=== PATIENT | male | born 1980 | race Caucasian/White ===

== ENCOUNTER 2017-05-17 10:39 | Inpatient (IN) ==
--- NOTE | 2017-05-17 11:16 | Emergency Department Note ---
Disposition Clinical Impression: RLQ abdominal pain, Intractable abdominal pain Disposition: Admitted As Inpatient Condition: Good Time of Disposition: 15:09 Abdominal Pain HPI - General Chief Complaint: ED Abdominal Pain Stated Complaint: abd pain Time Seen by Provider: 05/17/17 11:00 Source: patient Mode of arrival: ambulatory Limitations: no limitations Nursing Notes Reviewed: Yes Vital Signs Reviewed: Yes - History of Present Illness HPI Narrative: Patient is a 36-year-old male with no past medical history. He presents today due to right lower quadrant pain. The pain was present this morning after waking up, it is sharp in nature, radiates to groin. He has significant pain in RLQ with palpation of the RLQ area. Reports nausea, but no vomiting, fevers , diarrhea, blood in stool, no URI symptoms, dysuria, hematuria. He has never had a history of kidney stones in the past. He still has his appendix. He states that he tried to go to work this morning but continued to have significant pain in the right lower quadrant and was sent here from work. He is unable to stand up straight fully due to pain in the right lower quadrant, he also states that on the car ride over that every bump that he hit in the car caused significant pain in that area. Pain Scale: 8 - Related Data Home Medications Medication Instructions Recorded Confirmed No Known Home Drugs 05/17/17 05/17/17 Allergies Allergy/AdvReac Type Severity Reaction Status Date / Time No Known Allergies Allergy Verified 05/17/17 14:13 All systems ED: reviewed and negative except as stated. Constitutional: Denies: fever ENT ED: Denies: ear pain, congestion, dysphagia Cardiovascular: Denies: chest pain, palpitations Respiratory: Denies: cough, dyspnea, wheezes Gastrointestinal: Reports: abdominal pain, nausea. Denies: vomiting, diarrhea, constipation Genitourinary: Denies: urgency, dysuria, frequency Musculoskeletal: Denies: back pain Neurological: Denies: weakness, numbness, paresthesias Abdominal Pain PMH - Past Medical History Medical history: Reports: no medical history Male Surgical History: Reports: no surgical history Psychiatric history: Reports: no psych history - Social History Smoking status: Never smoker Alcohol use: Reports: rarely Drug use: Reports: none Physical Exam Uncomfortable on exam, fidgeting in bed, can't seem to get comfortable - General Limitations: no limitations General appearance: alert, anxious - Head Head exam: atraumatic, normocephalic, normal inspection - Eye Eye exam: Present: normal appearance, PERRL, EOMI - ENT ENT exam: normal exam, normal oropharynx, mucous membranes moist - Neck Neck exam: Present: normal inspection, full ROM, trachea midline - Chest Chest inspection: Present: normal inspection, symmetric chest wall rise - Respiratory Respiratory exam: Present: normal lung sounds bilaterally - Cardiovascular Cardiovascular exam: Present: normal rhythm, tachycardia, normal heart sounds - Abdominal Exam Abdominal exam: Present: soft, tenderness (moderate RLQ), guarding (voluntary of RLQ). Absent: distention, rebound, rigidity - Extremities Exam Extremities exam: Present: normal inspection, full ROM. Absent: tenderness, pedal edema - Neurological Exam Neurological exam: Present: alert, oriented X3 - Psychiatric Psychiatric exam: Present: normal affect, normal mood - Skin Skin exam: Present: warm, dry, intact, normal color. Absent: rash Course Course Narrative: Patient only hypertensive on presentation, also tachycardic in the low 100s. This is likely secondary to pain. Physical exam shows an uncomfortable patient is constantly moving on the bed trying to get comfortable. Heart sounds normal , regular rhythm. Lungs clear to auscultation. Abdominal exam shows moderate tenderness in the right lower quadrant with some voluntary guarding. No CVA tenderness bilaterally. Due to history and physical exam, current concern for appendicitis versus kidney stone. We will give patient Dilaudid for pain control, obtain basic labs, urinalysis, CT of the abdomen and pelvis with IV contrast. 13:32 WBC 17.9. THe rest of the patients labs WNL. Negative UA. CT scan of the abdomen and pelvis was negative for any signs of appendicitis or kidney stone. However, patient continues to have pain despite 2 doses of Dilaudid. He still has right lower quadrant pain. With elevated white blood cell count, continue regular quadrant pain, I do feel that the patient needs admission for serial abdominal exams, possible surgical consult if worsening. Abdomen/Pelvis CT 05/17/17 11:22 IMPRESSION: Negative. Specifically, no obstructive uropathy or evidence of appendicitis D/ / Louis Taylor MD / Louis Taylor MD Interpreting Provider: Louis Taylor MD Vital Signs Temperature 99.1 F 05/17/17 10:44 Pulse Rate 100 05/17/17 10:44 Respiratory Rate 18 05/17/17 10:44 Blood Pressure 136/86 05/17/17 10:44 O2 Sat by Pulse Oximetry 98 05/17/17 10:44 Temperature 99.1 F 05/17/17 10:44 Pulse Rate 75 05/17/17 14:17 Respiratory Rate 18 05/17/17 14:17 Blood Pressure 137/83 05/17/17 14:17 O2 Sat by Pulse Oximetry 98 05/17/17 14:17 Oxygen Delivery Oxygen Delivery Room Air Abdominal Pain - MDM Narrative Medical decision making narrative: WBC 17.9. THe rest of the patients labs WNL. Negative UA. CT scan of the abdomen and pelvis was negative for any signs of appendicitis or kidney stone. However, patient continues to have pain despite 2 doses of Dilaudid. He still has right lower quadrant pain. With elevated white blood cell count, continue regular quadrant pain, I do feel that the patient needs admission for serial abdominal exams, possible surgical consult if worsening. - Medical Records Medical records reviewed: Yes I reviewed the patient's medical records. - Lab Data Lab results reviewed: Yes I reviewed the patient's lab results. Result diagrams: 05/17/17 11:27 05/17/17 11:27 Lab Results 05/17/17 05/17/17 05/17/17 Range/Units 11:08 11:27 11:27 WBC 17.9 H (4.3-11.1) K/mcL RBC 4.97 (4.19-5.50) M/mcL Hgb 14.0 (12.9-16.9) g/dL Hct 41.4 (37.5-50.1) % MCV 83.3 (83.0-100.0) fL MCH 28.2 (28.0-33.3) pg MCHC 33.8 (31.6-35.5) g/dL RDW 12.8 (11.5-14.5) % Plt Count 291 (140-400) K/mcL MPV 10.3 (9.4-12.4) fL Immature Gran % 0.3 (0-4) % Seg Neutrophils % 83.9 % Lymphocytes % 9.7 % Monocytes % 5.2 % Eosinophils % 0.7 % Basophils % 0.2 % Neutrophils # 15.0 H (1.6-8.9) K/mcL Lymphocytes # 1.7 (0.6-4.6) K/mcL Monocytes # 0.9 (0.0-1.3) K/mcL Eosinophils # 0.1 (0.0-0.6) K/mcL Basophils # 0.0 (0.0-0.2) K/mcL Sodium 139 (136-145) mEq/L Potassium 4.1 (3.5-4.5) mEq/L Chloride 105 (98-109) mEq/L Carbon Dioxide 26 (19-29) mEq/L BUN 12 (8-26) mg/dL Creatinine 0.88 (0.72-1.25) mg/dL Est GFR ( Amer) > 60 (> 60) Est GFR (Non-Af Amer) > 60 (> 60) BUN/Creatinine Ratio 14 (6-26) Glucose 102 H (70-99) mg/dL Calculated Osmolality 288 (280-300) Calcium 9.8 (8.6-10.8) mg/dL Total Bilirubin 0.7 (0.2-1.2) mg/dL Direct Bilirubin 0.3 (0.0-0.5) mg/dL Indirect Bilirubin 0.4 (0.0-1.2) mg/dL AST 23 (5-34) Units/L ALT 55 (0-55) Units/L Alkaline Phosphatase 53 (38-126) Units/L Serum Total Protein 7.5 (6.0-8.3) g/dL Albumin 4.4 (3.5-5.0) g/dL Globulin 3.1 (2.4-3.5) g/dL Albumin/Globulin Ratio 1.4 (1.1-2.2) Lipase 11 (8-78) Units/L Urine Color Yellow (Yellow) Urine Clarity Clear (Clear) Urine pH 7.5 (5.0-8.0) pH Units Ur Specific Porter 1.024 (1.010-1.025) Urine Protein Negative (Neg-Trace) mg/dL Urine Glucose (UA) Normal (Normal) mg/dL Urine Ketones Negative (Negative) mg/dL Urine Blood Negative (Negative) Urine Nitrite Negative (Negative) Urine Bilirubin Negative (Negative) Urine Urobilinogen Normal (Normal) mg/dL Ur Leukocyte Esterase Negative (Negative) - Radiology Data Radiology results reviewed: Yes I reviewed the patient's radiology results. Abdomen/Pelvis CT 05/17/17 11:22 IMPRESSION: Negative. Specifically, no obstructive uropathy or evidence of appendicitis D/ / Louis Taylor MD / Louis Taylor MD Interpreting Provider: Louis Taylor MD yra - Chiquita Situation: Demographics, MOA Background: Presenting Complaint, Relevant PMH, Meds, & Allergies Assessment: Vital Signs, Course and respsone to treatment, Exam Concerns, Patient/Family Expectation, Pertinant Lab Results, Outstanding Labs Recommendation: Barrier(s) to disposition, Recommendation based on pending studies, treatments, or consults Chiquita Report Given to: Dr. Samara Porras Repor Time: 15:09 Attestation Statement - Attestation Attestation: I examined this patient and my medical decision-making was reviewed with the Resident Physician, Dr. Riddle. I agree with the documented findings, disposition and treatment plan as described except to the extent set forth below. Patient is an otherwise healthy 36-year-old white male who presents to the emergency today with gradually worsening right lower quadrant abdominal pain since last night. Patient with some associated nausea but no vomiting or bowel changes. Patient appears uncomfortable and is actually writhing at bedside on arrival due to the discomfort in his pain. Patient denies any history of kidney stones, no urinary symptoms and no flank pain. Physical exam findings as documented. Patient received IV pain medication and laboratory values urinalysis was sent. On clinical exam he had significant tenderness to palpation in the right lower quadrant with some guarding. We were concerned about the possibility of appendicitis due to his abdominal exam and he was sent for CAT scan imaging with contrast. Patient has remained hemodynamically stable throughout his ED course. IV pain medicines patient is still quite uncomfortable in the ED. His abdominal exam remains stable over time. His CT scan did not show any evidence of appendicitis, appendix was clearly visualized with no changes. He also did not have any other abnormalities seen. Patient's white count is significantly elevated at 18 with a left shift and the remainder of his labs are unremarkable. Due to patient's ongoing pain, perineal signs on exam we will admit the patient for serial abdominal exams and possible surgical consult. Case was discussed with the hospitalist who accepted the patient for admission.
[2017-05-17 11:21] LABS: Bilirubin,Urine Negative (Negative); Blood,Urine Negative (Negative); Clarity,Urine Clear (Clear); Color,Urine Yellow (Yellow); Glucose,Urine (UA) Normal (Normal); Ketones,Urine Negative (Negative); Leukocyte Esterase,Urine Negative (Negative); Nitrite,Urine Negative (Negative); PH,Urine 7.5 pH Units (5.0-8.0); Protein,Urine Negative (Neg-Trace); Specific Gravity,Urine 1.024 (1.010-1.025); Urobilinogen,Urine Normal (Normal)
[2017-05-17] MEDS ORDERED: *HR* HYDROmorphone (PF) 1 MG/ML SYRINGE IVP ONE ×3 (11:22→15:03)
[2017-05-17 11:34] LABS: Basophils % 0.2 %; Eosinophils # 0.1 K/mcL (0.0-0.6); Eosinophils % 0.7 %; Hematocrit 41.4 % (37.5-50.1); Immature Granulocytes % 0.3 % (0-4); Lymphocytes # 1.7 K/mcL (0.6-4.6); Lymphocytes % 9.7 %; Mean Corpuscular HGB Conc 33.8 g/dL (31.6-35.5); Mean Corpuscular Hemoglobin 28.2 pg (28.0-33.3); Mean Corpuscular Volume 83.3 fL (83.0-100.0); Mean Platelet Volume 10.3 fL (9.4-12.4); Monocytes # 0.9 K/mcL (0.0-1.3); Monocytes % 5.2 %; Platelet Count 291 K/mcL (140-400); Red Blood Count 4.97 M/mcL (4.19-5.50); Red Cell Distribution Width 12.8 % (11.5-14.5); Segmented Neutrophils % 83.9 %
[2017-05-17 11:50] LABS: Alanine Aminotransferase 55 Units/L (0-55); Albumin 4.4 g/dL (3.5-5.0); Albumin/Globulin Ratio 1.4 (1.1-2.2); Alkaline Phosphatase 53 Units/L (38-126); Aspartate Amino Transferase 23 Units/L (5-34); BUN/Creatinine Ratio 14 (6-26); Bilirubin,Direct 0.3 mg/dL (0.0-0.5); Bilirubin,Indirect 0.4 mg/dL (0.0-1.2); Bilirubin,Total 0.7 mg/dL (0.2-1.2); Blood Urea Nitrogen 12 mg/dL (8-26); Calcium 9.8 mg/dL (8.6-10.8); Carbon Dioxide 26 mEq/L (19-29); Chloride 105 mEq/L (98-109); Globulin 3.1 g/dL (2.4-3.5); Glucose 102 mg/dL (70-99); Lipase 11 Units/L (8-78); Osmolality,Calculated 288 (280-300); Potassium 4.1 mEq/L (3.5-4.5); Sodium 139 mEq/L (136-145); Total Protein 7.5 g/dL (6.0-8.3); eGFR For African Americans > 60 (> 60); eGFR For Non-African Americans > 60 (> 60)
[2017-05-17] MEDS ORDERED: Ketorolac 30 MG/ML VIAL IVP ONE (17:42)
--- NOTE | 2017-05-17 21:03 | Internal Med History&Physical ---
<Mary Henderson - Last Filed: 05/17/17 23:15> Date of Encounter: 05/17/17 Time of Encounter: 20:46 Assessment and Plan (1) RLQ abdominal pain Current visit: Yes Status: Acute Patient has significant right lower quadrant tenderness since 5:30 AM. Positive McBurney point, Psoas sign, obturator sign. Negative Rovsing sign in [place]. Patient admits minimal nausea. Denies fever, chills, dysuria, hematachezia, difficulty urinating, diarrhea. Physical exam and history very concerning for appendicitis despite negative abdominal CT findings for appendicitis. WBC 17.9 Afebrile, vital stable Abd CT- negative for appendicitis Flagyl IV surgery consulted- Dr. Gonsalez IV morphine IV fluids Zofran NPO (2) Leukocytosis Current visit: Yes Status: Acute WBC 17.9 Infectious source is concerning for appendicitis despite normal Abdominal CT scan. Urinalysis normal IV flagyl (3) DVT prophylaxis Current visit: Yes Status: Acute SCDP Internal Medicine - H&P: HPI Chief complaint: right lower quadrant pain Admitted From: Emergency Dept Plans for Post Hospital Care: Home History of present illness: Mr. Cardona is a 36 year old male with no past medical history who presented to the hospital complaining of right lower quadrant pain that began at 5:30am when he woke up. He stated that he went to work because he thought the pain might go away. At work he was unable to bend over and was favoring his right side. A co- worker that is an EMT recommended that he go to the ED. At 10am his father drove him to the ED and the bumps in the road made it more painful. He has never had anything like this before. He still has his appendix. He stated that the Dilaudid given in ED helped some but only for a short time. Standing and moving makes the pain worse. He describes the pain as sharp without radiation elsewhere. He admitted to mild nausea. He denies fever, chills, vomiting, diarrhea, hematachezia, melena, dysuria, chest pain, shortness of breath, difficulty urinating. He denies previous abdominal surgeries, hernias, kidney stone, falls, trauma. He is a full code. Abdominal CT showed no appendicitis. Elevated WBC 17.9 Afebrile, hemodynamically stable. Past Med Surg Social Fam HX - Past Medical History Medical history: no medical history Psychiatric history: no psych history - Past Surgical History Surgical History: other (tonsillectomy and wisdom teeth) - Social History Smoking Status: Never smoker Smokeless Tobacco Status: No Alcohol use: rarely Drug use: none Occupational status: employed Current living situation: Home Activity Level: Independent ambulation - Family History Mother Living Status: Still Living Hx Family Cardiac Disorders: No Hx Family Cancer: No Internal Medicine - H&P: Meds No Known Home Drugs 05/17/17 [History] 3 Allergy/AdvReac Type Severity Reaction Status Date / Time No Known Allergies Allergy Verified 05/17/17 14:13 All Systems PM: A 10-system review of systems was performed and is negative for pertinent findings except as documented above in the HPI. - Constitutional Constitutional: no chills, no fever(s), no falls - EENT Eyes: no change in vision - Cardiovascular Cardiovascular ROS IM: no chest pain, no edema, no palpitations, no syncope - Respiratory Respiratory: no cough, no dyspnea, no wheezing - Gastrointestinal Gastrointestinal: abdominal pain (right lower quadrant), nausea, no change in bowel habits, no constipation, no diarrhea, no hematemesis, no hematochezia, no melena, no vomiting - Genitourinary Genitourinary ROS male: no difficulty urinating, no dysuria, no hematuria, no penile discharge, no testicular pain, no urinary frequency - Integumentary Integumentary IM: no rash, no skin ulcer - Neurological Neurological ROS: no dizziness, no frequent falls, no headache(s) - Psychiatric Psychiatric: no confusion - Constitutional Vitals: Temp Pulse Resp BP Pulse Ox 97.6 F 69 18 126/74 100 05/17/17 18:55 05/17/17 18:55 05/17/17 18:55 05/17/17 18:55 05/17/17 18:55 General appearance: Present: mild distress, A&O X 3, pleasant - Head Head exam: Present: atraumatic, normocephalic - Eye Eye exam: Present: conjunctival injection, normal appearance - ENT ENT exam: Present: mucous membranes moist - Neck Neck exam general surgery: Present: supple. Absent: tenderness - Respiratory Respiratory exam: Present: CTAB. Absent: rales, rhonchi, wheezes - Cardiovascular Cardiovascular exam: Present: RRR, +S1, +S2. Absent: clicks - GI/Abdominal GI/Abdominal exam: Present: guarding (minimal), hypoactive bowel sounds, rebound , soft, tenderness (right lower quadrant), no peritoneal signs. Absent: distended, firm, hernia - Expanded GI/Abdominal Exam GI/Abdominal exam expanded: Present: obturator sign, psoas sign, tenderness at McBurney's Point. Absent: Ashton's sign, Rovsing's sign - exam: Absent: testicular tenderness - Extremities Exam Extremities exam: Absent: tenderness - Back Exam Back exam: Present: normal inspection. Absent: CVA tenderness (L), CVA tenderness (R), rash noted - Skin Skin exam: Present: dry, intact. Absent: rash Internal Med - H&P Results - Labs CBC & Chem 7: 05/17/17 11:27 05/17/17 11:27 <Farnaz Fulton - Last Filed: 05/18/17 02:53> Date of Encounter: 05/17/17 Internal Medicine - H&P: HPI History of present illness: Mr. Cardona is a 36 year old male All Systems PM: A 10-system review of systems was performed and is negative for pertinent findings except as documented above in the HPI. - Constitutional Vitals: Temp Pulse Resp BP Pulse Ox 98.0 F 66 16 142/87 99 05/18/17 02:41 05/18/17 02:41 05/18/17 02:41 05/18/17 02:41 05/18/17 02:41 Internal Med - H&P Results - Labs CBC & Chem 7: 05/17/17 11:27 05/17/17 11:27 - Attending Attestation Postop patient went in for a failure. Patient is awake and alert and consented to intubation. Resident was observed and supervised for procedure and procedure was completed without any complications.
[2017-05-17] MEDS ORDERED: Ondansetron ODT 4 MG TAB.RAPDIS SL PRN (22:01)
[2017-05-17] MEDS ORDERED: *HR* Morphine 2 MG/ML SYRINGE IVP PRN (22:01)
[2017-05-17] MEDS ORDERED: Naloxone 0.4 MG/ML INJ IVP PRN (22:01)
[2017-05-17] MEDS ORDERED: 0.9 % Sodium Chloride 1,000 ML IVC SCH (22:15)
[2017-05-18] MEDS ORDERED: MetroNIDAZOLE 500 MG/100 ML 500 MG/100 ML BAG IVPB SCH
--- NOTE | 2017-05-18 00:06 | General Surgery Consult Note ---
Date of Encounter: 05/18/17 Time of Encounter: 23:30 History of Present Illness Consult date: 05/17/17 Reason for consult: abdominal pain (Right lower quadrant; suspected acute appendicitis) Requesting physician: Mary Henderson History of present illness: 36-year-old male referred to surgery late this evening for further evaluation and treatment of acute onset right lower quadrant abdominal pain. Patient indicates symptoms started approximately 0500 hrs. He had severe abdominal pain on awakening from sleep but no nausea and vomiting. He attempted to go to work but was unable to do so due to the abdominal pain. There was no associated fevers chills or diarrhea. He presented to [facility] ED earlier today for further evaluation and treatment. Findings included a leukocytosis of 17.9 with 15% neutrophils accompanying the acute right lower quadrant abdominal pain. The patient described feeling every bump in the road en route to the hospital and was buggy ladle tender in the right lower quadrant on presentation to the ED. CT of the abdomen and pelvis without contrast demonstrated no intra-abdominal or pelvic findings. The appendix was described as normal. Due to the findings the patient was admitted for further observation and has had progressive pain since that admission. This ultimately prompted surgical consultation late this evening. Past medical history: Negative Surgical history: Tonsillectomy Medications: None Allergies: No known drug allergies Social history: Patient is , lives with his spouse and 4 children; he is employed. He admits to a history of tobacco abuse in the past he currently "vapes". He admits to an occasional alcoholic beverage; he does not admit to any illicit drug use. Physical examination: Age-appropriate male resting comfortably in his hospital bed indicating persistent right lower quadrant abdominal pain. He is 1.91 m tall 113.4 kg, BMI 31.2. He has been afebrile at 97.6, pulse 74 , respirations 16, blood pressure 145/88. SPO2 on room air 100% Skin is warm without obvious jaundice Lungs: Clear to auscultation, no abdominal pain with deep inspiration Cardiac: Regular rate, no appreciable murmurs Abdomen: Soft, with tenderness in the right lower quadrant. I did not elicit any rebound or tenderness radiating to the right lower quadrant with palpation of the left lower quadrant (Rovsing sign). Patient did demonstrate a psoas sign. Bowel sounds were active. There were no discernible intra-abdominal masses. Extremities: No obvious clubbing cyanosis or edema. Impression: 36-year-old male with abrupt onset right lower quadrant abdominal pain early this morning. It has progressed in severity but is not associated with any fevers, chills, nausea or vomiting. It is possible for a CT scan obtained within 24 hours of onset of symptoms to be negative for acute appendicitis. The findings are highly suspicious for acute appendicitis. Treatment options include continued expectant follow-up with serial abdominal exams versus surgical intervention. The risks of surgery include hemorrhage, infection, intra-abdominal abscess, injury to adjacent structures and the potential for removal of a normal appendix. The patient describes pain as severe enough for him to request surgery. Surgical consent has been obtained. The patient is a reasonable candidate for laparoscopic appendectomy but understands that an open appendectomy may become necessary. The surgical team has been notified and we will proceed as soon as possible. Past Med Surg Social Fam HX - Past Medical History Medical history: no medical history Psychiatric history: no psych history - Past Surgical History Surgical History: other (tonsillectomy and wisdom teeth) - Social History Smoking Status: Never smoker Smokeless Tobacco Status: No Alcohol use: rarely Drug use: none - Family History Mother Living Status: Still Living Hx Family Cardiac Disorders: No Hx Family Cancer: No Medications and Allergies No Known Home Drugs 05/17/17 [History] 3 Allergy/AdvReac Type Severity Reaction Status Date / Time No Known Allergies Allergy Verified 05/17/17 14:13 Review of Systems All systems PM: A 10-system review of systems was performed and is negative for pertinent findings except as documented above in the HPI. General Surgery Exam Initial Vital Signs Temp Pulse Resp BP Pulse Ox 99.1 F 100 18 136/86 98 05/17/17 10:44 05/17/17 10:44 05/17/17 10:44 05/17/17 10:44 05/17/17 10:44 Exam Initial Vital Signs Temp Pulse Resp BP Pulse Ox 99.1 F 100 18 136/86 98 05/17/17 10:44 05/17/17 10:44 05/17/17 10:44 05/17/17 10:44 05/17/17 10:44 Results - Labs 05/17/17 11:27 05/17/17 11:27 Abnormal lab results WBC 17.9 K/mcL (4.3-11.1) H 05/17/17 11:27 Neutrophils # 15.0 K/mcL (1.6-8.9) H 05/17/17 11:27 Glucose 102 mg/dL (70-99) H 05/17/17 11:27 All other labs normal. Consult Discharge Plan - Plan Referrals: Kb Swain MD [Primary Care Provider] -
[2017-05-18] MEDS ORDERED: *HR* HYDROmorphone (PF) 1 MG/ML SYRINGE IVP PRN ×2 (00:08→03:36)
[2017-05-18] MEDS ORDERED: *HR* Promethazine 25 MG/ML VIAL IVP PRN (00:08)
--- NOTE | 2017-05-18 00:08 | Anesthesia Evaluation PreOp ---
Date of Encounter: 05/18/17 Time of Encounter: 00:50 - Past History Planned Operation: Laparoscopic Appendectomy Cardiac History: Denies any Significant Hx Pulmonary History: Denies Any Significant HX DIAZO TECHNICIAN History: Denies Any Significant HX Other Medical History: Denies Any Significant HX Anesthesia History: Past Anesthesia (no prior surgery) Alcohol Use: occasionally Drug use: none Medications and Allergies No Known Home Drugs 05/17/17 [History] 3 Allergy/AdvReac Type Severity Reaction Status Date / Time No Known Allergies Allergy Verified 05/17/17 14:13 - Meds/Allergy Pre-op Review Medications Reviewed: Yes Allergies Reviewed: Yes Beta Blockers on Current Med List: No Anesthesia Results - Labs 05/17/17 11:27 05/17/17 11:27 Anesthesia Exam Vital Signs/O2 Sat, Most Current Temp Pulse Resp BP Pulse Ox 97.6 F 74 16 145/88 100 05/17/17 18:55 05/17/17 23:27 05/17/17 23:27 05/17/17 23:27 05/17/17 23:27 Height: 6'3''/1.91 m Weight: 250 lbs/113.4 kg NPO (# of Hours): 8 Pain Scale: 8 (abdomen) Pain Scale Used: Numeric (1 - 10) - HEENT Pupil (Motor): EOMI Mallampati: II Teeth: Normal Oral Opening: Greater than 3 - DIAZO TECHNICIAN LOC: Oriented DIAZO TECHNICIAN Motor: Normal RUE, Normal LUE, Normal RLE, Normal LLE, Normal Face DIAZO TECHNICIAN Sensory: Normal: RUE, LUE, RLE, LLE, Face - Cardiac Rhythm: Regular Murmur: None - Pulmonary Breath Sounds: bilateral Clear Respiratory Effort: Symmetrical Anesthesia Assess/Plan ASA Score: 2 Modified Tomas Scale for Level of Consciousness: Cooperative, oriented, and tranquil Anesthetic Plan: General Monitoring Plan: Standard Monitors Recovery Plan: PACU
[2017-05-18] MEDS ORDERED: *HR* Propofol 200 MG/20 ML VIAL IVP ONE (00:22)
[2017-05-18] MEDS ORDERED: *HR* Morphine 10 MG/ML VIAL ONE (00:22)
[2017-05-18] MEDS ORDERED: *HR* FentaNYL (PF) 100 MCG/2 ML VIAL ONE (00:22)
[2017-05-18] MEDS ORDERED: *HR* Midazolam HCl 2 MG/2 ML VIAL ONE (00:22)
[2017-05-18] MEDS ORDERED: *HR* Succinylcholine 200 MG/10 ML VIAL IVP ONE (00:23)
[2017-05-18] MEDS ORDERED: Dexamethasone 4 MG/ML VIAL ONE (00:23)
[2017-05-18] MEDS ORDERED: *HR* Rocuronium Bromide 50 MG/5 ML VIAL ONE (00:23)
[2017-05-18] MEDS ORDERED: Lidocaine -MPF 2% 2 ML VIAL ONE (00:23)
[2017-05-18] MEDS ORDERED: Ondansetron 4 MG/2 ML VIAL ONE (00:23)
[2017-05-18] MEDS ORDERED: CefOXitin 2,000 MG VIAL ONE (00:44)
[2017-05-18] MEDS ORDERED: Bupivacaine/EPI 1:200k 0.5%PF 10 ML VIAL ONE (00:47)
[2017-05-18] MEDS ORDERED: Lidocaine -MPF 4% 5 ML AMPUL ONE (00:53)
[2017-05-18] MEDS ORDERED: Lidocaine 1% 20 ML MDV ONE (00:55)
[2017-05-18] MEDS ORDERED: Ringers Solution, Lactated 1,000 ML IVC SCH (01:00)
[2017-05-18] MEDS ORDERED: Neostigmine Methylsulfate 3 MG/3 ML SYRINGE ONE (01:45)
--- NOTE | 2017-05-18 02:14 | Operative Note ---
Date of procedure: 05/18/17 Pre-op diagnosis: acute right lower quadrant abdominal pain, likely acute appendicitis Post-op diagnosis: same Procedure: laparoscopic appendectomy Complications: none apparent Anesthesia: GETA Local Anesthetics: 0.5% Sensorcaine HCL with Epinephrine 1:200,000 SubQ (cc) ( 30mL) Surgeon: Chucky Gonsalez Estimated blood loss (cc): 5 IV fluids (cc): 1,300 Condition: stable Disposition: PACU Procedure in Detail: Brief history: 36-year-old male admitted earlier, 05/17/17, after presenting to the emergency department with new onset right lower quadrant abdominal pain. He has included a leukocytosis of greater than 17,000 with neutrophilia, however , a CT scan was not consistent with acute appendicitis. The patient's abdominal pain progressed since admission prompting a surgical consultation be placed much later in the day. On my assessment it appeared likely that the patient had early acute appendicitis for which surgery was recommended. Alternative treatment included continued monitoring and serial abdominal exams. The patient described his pain as too great to delay surgery. Consent for laparoscopic appendectomy possible open appendectomy was obtained. Technique: The patient was brought to the operating room where he was placed supine upon the operating room table. The patient was appropriately identified as to person and procedure. The accuracy of this information was confirmed by the procedure team. The patient was then intubated and anesthetized under the supervision of Dr. Rommel Monroy. Initially lying on the operating room table the patient complained of increased abdominal pain, maintaining his hips and knees flexed until anesthesia was induced. The abdomen was prepped and draped in usual sterile fashion. Several milliliters of 0.5% bupivacaine with 1-200,000 epinephrine was infiltrated into the infraumbilical skin. A small transverse incision was made and stented to the fascia. The fascia was grasped and elevated. Additional bupivacaine with epinephrine was infiltrated into the fascia before it was incised. An 11 mm Xcel Port was established without difficulty. The rigid laparoscope was placed within the obturator to visualize passage through the layers of the anterior abdominal wall. Once the abdominal cavity was accessed, the obturator was replaced by the rigid laparoscope and the abdomen was insufflated with gaseous carbon dioxide. There was no obvious visible injury from established in the port. Under direct visualization a 5 mm port was placed in the suprapubic midline and a 12 mm port was placed in the left lower quadrant midclavicular line. Both sites were infiltrated with bupivacaine with epinephrine solution. Index was identified and appeared to be mildly inflamed and indurated consistent with early acute appendicitis. The mesoappendix was divided at the junction of the appendix with the cecum allowing the appendix to be transected at its junction with the cecum using a Ethicon ATS 45 mm stapler using a blue cartridge. The mesoappendix was then transected with a second application of the Ethicon ATS 45 linear stapler using a vascular (white) cartridge. The appendix was from the surrounding structures and placed in an endoscopic pouch and extracted through the infraumbilical opening. The appendix was retrieved and sent to pathology. The 2 staple lines appeared to be intact. A survey of the rest of the abdomen demonstrated no other obvious pathology. Pneumoperitoneum was evacuated, the instrumentation was removed. Fascia of the infraumbilical opening was closed with interrupted figure of eights 0 Vicryl using S retractors. The skin edges at sites were closed with running subcuticular 4-0 Vicryl. The incisions were sealed with Dermabond dermal adhesive. The patient was taken to recovery in stable condition. Needle, sponge, and instrument counts were correct at the close of the case. Total volume of 0.5% bupivacaine with 1-200,000 units epinephrine used during this procedure, 30 mL.
--- NOTE | 2017-05-18 02:30 | Anesthesia Evaluation Post Op ---
Date of Encounter: 05/18/17 Time of Encounter: 02:30 - Vital Signs Vital Signs: Vital Signs/O2 Sat, Most Current Temp Pulse Resp BP Pulse Ox 98.2 F 71 16 138/83 96 05/18/17 02:11 05/18/17 02:21 05/18/17 02:21 05/18/17 02:21 05/18/17 02:21 - Lungs Lungs: Clear Ascult./Percussion - Airway Airway: Non-obstructed - Cardiovascular Regular Rate - Mental Status Mental Status: Asleep with brisk response to light stimulation - Pain Pain Scale: 4 Pain Scale used: Numeric (1 - 10) - Nausea Vomiting Nausea Vomiting: Not Present - Hydration Hydration: Ice chips, Has not voided - Discharge PostOp Status: Transfer Patient to floor
[2017-05-18] MEDS ORDERED: Naloxone 0.4 MG/ML INJ IVP PRN (03:36)
[2017-05-18] MEDS ORDERED: *HR* OxyCODONE/APAP 5/325 TABLET PO PRN (03:36)
[2017-05-18] MEDS ORDERED: 0.9 % Sodium Chloride 1,000 ML IVC SCH (03:36)
[2017-05-18] MEDS ORDERED: Acetaminophen 325 MG TABLET PO PRN (03:36)
[2017-05-18] MEDS ORDERED: Ondansetron 4 MG/2 ML VIAL IVP PRN (03:36)
[2017-05-18] MEDS ORDERED: Ringers Solution, Lactated 500 ML IV SCH (03:45)
[2017-05-18 11:02] VITALS: BP 131/68
[2017-05-18 12:01] LABS: Basophils % 0.1 %; Hematocrit 37.9 % (37.5-50.1); Hemoglobin 12.5 g/dL (12.9-16.9); Immature Granulocytes % 0.4 % (0-4); Lymphocytes # 0.8 K/mcL (0.6-4.6); Lymphocytes % 8.1 %; Mean Corpuscular Hemoglobin 28.2 pg (28.0-33.3); Mean Corpuscular Volume 85.4 fL (83.0-100.0); Monocytes # 0.5 K/mcL (0.0-1.3); Monocytes % 5.5 %; Neutrophils # 8.5 K/mcL (1.6-8.9); Platelet Count 262 K/mcL (140-400); Red Blood Count 4.44 M/mcL (4.19-5.50); Red Cell Distribution Width 12.8 % (11.5-14.5); Segmented Neutrophils % 85.9 %
--- NOTE | 2017-05-18 14:20 | General Surgery Progress Note ---
Date of Encounter: 05/18/17 Time of Encounter: 14:00 Subjective Patient reports: feels better, pain is less, tolerating a regular diet Narrative: General Surgery - Post op check patient approx 13 hours s/p lap appendectomy. The appendix was minimally inflamed and indurated consistent with early acute appendicitis. No obvious perforation. The patient is feeling much improved, pain is significantly diminished. He now describes himself as "sore" The patient remains afebrile, most recently 97.8, pulse 67, respirations 14, blood pressure 131/68 Lungs: Clear to auscultation, no obvious abdominal pain on deep inspiration Abdomen: Soft with minimal periumbilical tenderness. Port sites are intact and appear to be healing well. Surrounding ecchymosis most likely related to infiltration of local anesthetic at the time of surgery. Bowel sounds are active. Patient tolerating regular diet with no nausea or vomiting. Postoperative blood work shows resolution of leukocytosis, 9.8; hemoglobin 12.5 hematocrit 37.9. Differential shows resolved neutrophilia Impression: Early acute appendicitis. Preoperative symptoms resolved. Pathology pending for confirmation of the clinical diagnosis Acceptable postoperative state. If medically stable, may be discharged home Instructions: Regular diet Patient may shower, wash incisions with soap and water Activity as tolerated; lifting limited to less than 20 pounds Follow up my office, 05/27/17. Patient to call office in a.m. to make this appointment Tylenol, ibuprofen, Motrin, Advil, etc. as needed for pain Suggest Prescription for Percocet 5/325, #6, 1 every 6 hours as needed for pain not relieved by [id number] medications: Objective Vital Signs - Last 8 Hours Temp Pulse Resp BP Pulse Ox 05/18/17 10:52 97.8 F 67 14 131/68 97 05/18/17 07:40 97.4 F L 79 16 111/79 96 Intake and Output 05/17/17 05/18/17 05/18/17 23:59 07:59 15:59 Intake Total 620 / 620 Output Total 360 / 360 0 / 0 Balance -360 / -360 620 / 620 Intake: Oral 620 / 620 Output: Urine 350 / 350 0 / 0 Estimated Blood Loss Other: Meal Lunch Percent of Meal Consumed 100% Weight 113.1 kg Patient Weight 05/18/17 23:59 Weight 113.1 kg - Labs 05/18/17 11:55 05/17/17 11:27 - VTE Documentation of Mechanical Device: Intermittent pneumatic compression device Consult Discharge Plan - Plan Referrals: Kb Swain MD [Primary Care Provider] -
--- NOTE | 2017-05-18 15:51 | Discharge Summary ---
Date of Encounter: 05/18/17 Time of Encounter: 15:49 - Discharge Diagnosis (1) Acute appendicitis Priority: Primary Status: Acute Qualifiers: Acute appendicitis type: unspecified acute appendicitis type Qualified Code (s): K35.80 - Unspecified acute appendicitis (2) Intractable abdominal pain Priority: Secondary Status: Acute (3) Leukocytosis Priority: Secondary Status: Acute Qualifiers: Leukocytosis type: unspecified Qualified Code(s): D72.829 - Elevated white blood cell count, unspecified - Discharge Medications Prescriptions: OxyCODONE/APAP 5/325 [Percocet 5/325 MG] 1 each PO Q8HR PRN #15 tablet PRN Reason: pain not relieved by Tylenol Home Medications: OxyCODONE/APAP 5/325 [Percocet 5/325 MG] 1 each PO Q8HR PRN #15 tablet 05/18/17 [Rx] Allergies/Adverse Reactions: 3 Allergy/AdvReac Type Severity Reaction Status Date / Time No Known Allergies Allergy Verified 05/17/17 14:13 Date of admission: 05/17/17 19:49 Primary care physician: Kb Swain MD Consults: 05/17/17 23:13 Consult to Surgery [CONS] Routine Consulting Provider: Surgery [facility] Reason for Consult: concern for appendicitis Call Completed: Yes Discharging clinician: Zeenat Perry - Patient Status Disposition: Home, Self-Care Condition: Good Functional capacity at discharge: independent ambulation Overall status at discharge: patient is progressing back to baseline - Discharge Instructions Instructions: Laparoscopic Appendectomy (DC) Follow Up With: Kb Swain MD [Primary Care Provider] - Additional Instructions: 1.) No lifting/pulling greater than 20 lbs for 2 weeks 2.) No tub baths for 1 week, may shower 3.) No driving until off narcotics for 24 hours 4.) Wash incisions with soap and water - Diet and Activity Activity: increase activity as tolerated Diet: advance to your usual diet Interval History: Meenu is a 36-year-old male with no past medical history who presented to the hospital initially complaining of right lower quadrant abdominal pain that began 5:30 AM on day of admission. His taken to the ER via his father and on the Route bumps in the road made it more painful. At that time he denied any fevers, chills, nausea, vomiting, hematochezia, melena, dysuria, chest pain, shortness of breath, dysuria. He has no history of abdominal surgeries, hernias , kidney stones, trauma. On arrival to the ED patient was found to have a positive McBurney's point and obturator sign. He was found of leukocytosis 17.9. An abdominal CT was negative for appendicitis. He was started on Flagyl IV, IV morphine, IV fluids, Zofran and kept nothing by mouth. Surgery was consulted and Dr. Lopez evaluated patient. This was likely early appendicitis and so patient underwent upper stopping appendectomy on 05/18/17. He tolerated procedure without issue throughout the day. He was able to be discharged later in the day in stable condition, discharged with 15 tablets of Percocet by mouth every 8 hours when necessary. Hospital course: Mr. Cardona is a 36 year old male - Time Spent with Patient Total time spent providing and/or coordinating discharge services: - Constitutional Vitals: Temp Pulse Resp BP Pulse Ox 97.8 F 67 14 131/68 97 05/18/17 10:52 05/18/17 10:52 05/18/17 10:52 05/18/17 10:52 05/18/17 10:52 General appearance: Present: mild distress, A&O X 3, pleasant Exam: CVS: RRR Lungs: CTAB Abd: Soft, ND, mild TTP diffusely, Normoactive bowel sounds. 3 incisions are c/ d, no dressing. Ext: no edema - VTE Documentation of Mechanical Device: Intermittent pneumatic compression device
== END 2017-05-18 16:21 | disposition home or self-care (01) | DRG 343 ==
LOC: 3ANU 10:39 → EMEROO 10:39 → 3ANU 15:40
PROVIDERS: ADMIT Hospitalist; ATTEND Internal Medicine